=== PATIENT | male | born 1970 | race Caucasian/White ===

== ENCOUNTER 2018-10-21 15:37 | Inpatient (IN) ==
--- NOTE | 2018-10-21 16:09 | PROVIDER DOCUMENTATION ---
HPI-Cardiac General - General Chief Complaint: Palpitations Stated Complaint: HEART RACING,SOB Time Seen by Provider: 10/21/18 15:56 Source: patient, family (pt ) Allergies/Adverse Reactions: Patient Allergies Allergy/AdvReac Type Severity Reaction Status Date / Time Penicillins Allergy Unknown Verified 10/21/18 17:08 - History of Present Illness-Cardiac Nature of Presenting Problem: 48 yom presents with c/o sob and palpitations. Reports that woke up this morning went outside to do yard work and become sob and feelings of going to pass out. States that went back inside to sit down and was feeling better and when he got up to go back outside the sob and palpitations started again. Reports went to work and started having sob and like he was gonna pass out. Takes aspirin daily. No pcp. Denies cp,n,v,f. Also states for the past two weeks he has been fasting for 18 hours out of the day each day then eats a small meal and a large meal in the 6 hours. Quality of Pain: reports: none Severity in ED: moderate Onset/Duration: this morning Timing: still present Context/Activities at Onset: reports: light activity Modifying Factors: worse with: movement Palpitation Quality: fast/pounding heart beat History of arrythmia: reports: none Recent use of:: reports: no stimulants Nitro Today/Relief: reports: no nitro taken today Aspirin Treatment Today: reports: 81 mg x 1, provided at home Prior Chest Pain/Cardiac Workup: reports: no prior chest pain Associated Symptoms: reports: shortness of breath Similar Symptoms Previously?: No Recently Seen Here or By Another Healthcare Provider: No Review of Systems - Adult - REVIEW OF SYSTEMS - ADULT Constitutional: denies: chills, fever, fatique Eyes: reports: no symptoms reported Ears, Nose, Mouth & Throat: reports: no symptoms reported Cardiovascular: reports: irregular heart rate, palpitations. denies: chest pain, heart murmur, orthopnea, poor circulation, syncope, other Respiratory: reports: shortness of breath. denies: chronic cough, dyspnea on exertion, excessive sputum production, hemoptysis, pleurisy, wheezing Gastrointestinal: reports: no symptoms reported Genitourinary: denies: dysuria, discharge, flank pain Musculoskeletal: reports: no symptoms reported Integumentary: reports: no symptoms reported Neurological: denies: dizziness/vertigo, headache/migraines, loss of balance, numbness, paresthesia, seizure, slurred speech, syncope, tremors Psychiatric: reports: no symptoms reported Endocrine: reports: no symptoms reported Hematologic/Lymphatic: reports: no symptoms reported Allergic/Immunologic: reports: no symptoms reported All Other Systems: Reviewed and Negative Past History - Adult - PAST MEDICAL HISTORY-ADULT Review of Records: reports: Nursing Assessment Review, Medications Reviewed Major Childhood Illnesses: reports: denies history Cardiovascular: reports: denies history Respiratory: reports: denies history Gastrointestinal: reports: denies history Obstetrical/Gynecological: reports: denies history Genitourinary: reports: denies history Musculoskeletal: reports: denies history Neurological: reports: denies history Endocrine/Immune: reports: denies history Other Conditions: reports: denies history - IMMUNIZATION STATUS Childhood Immunizations: See Nurse Assessment Flu Vaccine: See Nurse Assessment - FAMILY HISTORY Family History: reviewed, not pertinent - SOCIAL HISTORY Smoking: non-smoker Substance Use: none/never Physical Exam-General - PHYSICAL EXAM-ADULT Initial Vital Signs Reviewed: Yes - CONSTITUTIONAL General Appearance: alert, mild distress. negative: lethargic, slow to respond, obtunded, combative - EYES Eyes: PERRL/EOMI, pink conjunctivae - HEAD, EARS, NOSE, MOUTH & THROAT HENMT: moist mucous membranes - NECK Neck: non-tender, full range of motion, supple, normal inspection. negative: carotid bruit, C-spine tenderness, limited range of motion, lymphadenopathy - RESPIRATORY Respiratory: chest non-tender, lungs clear, normal breath sounds, no pleuratic chest pain, no respiratory distress, no accessory muscle use. negative: respiratory distress, decreased breath sounds, accessory muscle use, crackles, rales, rhonchi, stridor - CARDIOVASCULAR Cardiovascular: tachycardia, irregularly irregular - MUSCULOSKELETAL Back Exam: normal inspection Extremity: normal range of motion, non-tender - SKIN Integumentary: normal color, normal turgor, warm/dry - NEUROLOGIC Neurologic: grossly normal - PSYCHIATRIC Psych/Mental Status: normal mood/affect, normal thought content, normal thought process, oriented x 3 Progress - PLAN OF CARE/RESULTS Progress/Plan/Lab Results: Vital Signs - 8 hr 10/21/18 15:40 10/21/18 15:52 10/21/18 15:53 Temperature 97.9 F Pulse Rate 141 H 138 H 132 H Respiratory Rate 18 30 H 19 Blood Pressure 105/75 134/80 O2 Sat by Pulse Oximetry 96 96 10/21/18 16:00 10/21/18 16:01 10/21/18 16:15 Temperature Pulse Rate 145 H 130 H 144 H Respiratory Rate 8 L 11 L 17 Blood Pressure 97/63 101/87 O2 Sat by Pulse Oximetry 95 95 10/21/18 16:31 10/21/18 16:46 10/21/18 17:01 Temperature Pulse Rate 116 H 132 H 114 H Respiratory Rate 13 12 12 Blood Pressure 93/66 99/80 92/76 O2 Sat by Pulse Oximetry 94 L 96 95 10/21/18 17:10 10/21/18 17:14 10/21/18 17:15 Temperature Pulse Rate 82 129 H 137 H Respiratory Rate 14 15 12 Blood Pressure 85/65 86/67 O2 Sat by Pulse Oximetry 97 97 97 10/21/18 17:20 10/21/18 17:25 10/21/18 17:30 Temperature Pulse Rate 100 H 119 H 116 H Respiratory Rate 11 L 13 12 Blood Pressure 88/68 88/70 O2 Sat by Pulse Oximetry 97 94 L 97 10/21/18 17:36 10/21/18 17:40 10/21/18 17:41 Temperature Pulse Rate 104 H 103 H 134 H Respiratory Rate 13 11 L 12 Blood Pressure 91/66 105/45 O2 Sat by Pulse Oximetry 94 L 97 95 10/21/18 17:45 10/21/18 17:50 10/21/18 17:52 Temperature Pulse Rate 107 H 96 H 87 Respiratory Rate 12 13 10 L Blood Pressure 98/68 92/54 O2 Sat by Pulse Oximetry 98 95 95 10/21/18 17:56 10/21/18 18:00 10/21/18 18:01 Temperature Pulse Rate 131 H 124 H 129 H Respiratory Rate 9 L 16 10 L Blood Pressure 94/57 86/74 O2 Sat by Pulse Oximetry 100 100 10/21/18 18:06 10/21/18 18:10 10/21/18 18:12 Temperature Pulse Rate 120 H 116 H 124 H Respiratory Rate 16 19 12 Blood Pressure 100/68 91/67 O2 Sat by Pulse Oximetry 100 90 L 99 10/21/18 18:16 10/21/18 18:20 10/21/18 18:21 Temperature Pulse Rate 135 H 104 H 116 H Respiratory Rate 9 L 15 10 L Blood Pressure 93/53 90/61 O2 Sat by Pulse Oximetry 99 99 10/21/18 18:26 10/21/18 18:30 10/21/18 18:40 Temperature Pulse Rate 109 H 71 110 H Respiratory Rate 17 11 L 15 Blood Pressure 112/74 99/68 121/62 O2 Sat by Pulse Oximetry 98 99 99 10/21/18 18:45 10/21/18 18:50 10/21/18 18:55 Temperature Pulse Rate 134 H 133 H 134 H Respiratory Rate 17 14 13 Blood Pressure 111/82 112/79 106/73 O2 Sat by Pulse Oximetry 100 99 99 10/21/18 19:00 10/21/18 19:01 10/21/18 19:05 Temperature Pulse Rate 115 H 135 H 110 H Respiratory Rate 11 L 11 L 19 Blood Pressure 110/72 100/84 O2 Sat by Pulse Oximetry 99 98 10/21/18 19:10 10/21/18 19:11 10/21/18 19:16 Temperature Pulse Rate 97 H 76 138 H Respiratory Rate 14 18 20 Blood Pressure 104/92 97/73 O2 Sat by Pulse Oximetry 97 100 10/21/18 19:20 10/21/18 19:21 10/21/18 19:26 Temperature Pulse Rate 96 H 83 126 H Respiratory Rate 14 10 L 14 Blood Pressure 136/101 121/91 O2 Sat by Pulse Oximetry 99 97 99 10/21/18 19:30 10/21/18 19:31 10/21/18 19:37 Temperature Pulse Rate 112 H 80 86 Respiratory Rate 16 15 13 Blood Pressure 132/85 120/82 O2 Sat by Pulse Oximetry 96 95 97 10/21/18 19:40 10/21/18 19:41 10/21/18 19:46 Temperature Pulse Rate 86 140 H 83 Respiratory Rate 14 14 15 Blood Pressure 150/102 121/80 O2 Sat by Pulse Oximetry 97 97 98 10/21/18 19:50 10/21/18 19:52 10/21/18 19:56 Temperature Pulse Rate 91 H 140 H 115 H Respiratory Rate 11 L 18 17 Blood Pressure 130/72 110/89 O2 Sat by Pulse Oximetry 97 98 10/21/18 20:00 10/21/18 20:01 10/21/18 20:03 Temperature Pulse Rate 100 H 123 H 107 H Respiratory Rate 15 15 21 Blood Pressure 85/61 115/90 O2 Sat by Pulse Oximetry 96 97 98 10/21/18 20:06 10/21/18 21:19 Temperature Pulse Rate 136 H 102 H Respiratory Rate 19 Blood Pressure 127/82 O2 Sat by Pulse Oximetry 98 Laboratory Results - last 24 hr 10/21/18 10/21/18 10/21/18 15:53 15:53 15:53 WBC 6.92 RBC 5.64 Hgb 15.2 Hct 45.8 MCV 81.2 MCH 27.0 MCHC 33.2 RDW Std Deviation 13.5 Plt Count 201 MPV 12.7 H Immature Gran % (Auto) 0.0 Neut % (Auto) 39.6 L Lymph % (Auto) 48.1 [place] % (Auto) 7.8 Eos % (Auto) 3.6 Baso % (Auto) 0.9 H Immature Gran # (Auto) 0.00 Neut # (Auto) 2.74 Lymph # (Auto) 3.33 [place] # (Auto) 0.54 Eos # (Auto) 0.25 Baso # (Auto) 0.06 PT INR PTT (Actin FS) D-Dimer, Quantitative Sodium 141 Potassium 4.1 Chloride 104 Carbon Dioxide 25 Anion Gap 12 BUN 15 Creatinine 0.9 Estimated GFR/1.73 m2 > 60 BUN/Creatinine Ratio 17 Glucose 89 Calculated Osmolality 282 Calcium 9.3 Total Bilirubin 0.53 AST 25 ALT 19 Alkaline Phosphatase 51 Creatine Kinase 290 H Creatine Kinase Index 1.9 CK-MB (CK-2) 5.43 H Troponin T [id number] Pept 564 H Total Protein 6.9 Albumin 4.1 Globulin 2.8 Albumin/Globulin Ratio 1.5 Urine Source Urine Color Urine Turbidity Urine pH Ur Specific [place] Urine Protein Ur Glucose (Stick) Ur Ketones (Stick) Urine Blood Urine Nitrite Urine Bilirubin Urobilinogen Dipstick Urine Leukocytes Urine WBC (Auto) Urine RBC (Auto) U Epithel Cells (Auto) Urine Bacteria (Auto) 10/21/18 10/21/18 10/21/18 15:53 15:53 15:53 WBC RBC Hgb Hct MCV MCH MCHC RDW Std Deviation Plt Count MPV Immature Gran % (Auto) Neut % (Auto) Lymph % (Auto) [place] % (Auto) Eos % (Auto) Baso % (Auto) Immature Gran # (Auto) Neut # (Auto) Lymph # (Auto) [place] # (Auto) Eos # (Auto) Baso # (Auto) PT 13.9 INR 0.99 PTT (Actin FS) 32.9 D-Dimer, Quantitative 0.54 H Sodium Potassium Chloride Carbon Dioxide Anion Gap BUN Creatinine Estimated GFR/1.73 m2 BUN/Creatinine Ratio Glucose Calculated Osmolality Calcium Total Bilirubin AST ALT Alkaline Phosphatase Creatine Kinase Creatine Kinase Index CK-MB (CK-2) Troponin T < 0.010 [id number] Pept Total Protein Albumin Globulin Albumin/Globulin Ratio Urine Source Urine Color Urine Turbidity Urine pH Ur Specific [place] Urine Protein Ur Glucose (Stick) Ur Ketones (Stick) Urine Blood Urine Nitrite Urine Bilirubin Urobilinogen Dipstick Urine Leukocytes Urine WBC (Auto) Urine RBC (Auto) U Epithel Cells (Auto) Urine Bacteria (Auto) 10/21/18 19:14 WBC RBC Hgb Hct MCV MCH MCHC RDW Std Deviation Plt Count MPV Immature Gran % (Auto) Neut % (Auto) Lymph % (Auto) [place] % (Auto) Eos % (Auto) Baso % (Auto) Immature Gran # (Auto) Neut # (Auto) Lymph # (Auto) [place] # (Auto) Eos # (Auto) Baso # (Auto) PT INR PTT (Actin FS) D-Dimer, Quantitative Sodium Potassium Chloride Carbon Dioxide Anion Gap BUN Creatinine Estimated GFR/1.73 m2 BUN/Creatinine Ratio Glucose Calculated Osmolality Calcium Total Bilirubin AST ALT Alkaline Phosphatase Creatine Kinase Creatine Kinase Index CK-MB (CK-2) Troponin T [id number]-[id number] Pept Total Protein Albumin Globulin Albumin/Globulin Ratio Urine Source CLEAN CATCH Urine Color YELLOW Urine Turbidity CLEAR Urine pH 5.5 Ur Specific [place] 1.008 Urine Protein NEGATIVE Ur Glucose (Stick) NEGATIVE Ur Ketones (Stick) NEGATIVE Urine Blood NEGATIVE Urine Nitrite NEGATIVE Urine Bilirubin NEGATIVE Urobilinogen Dipstick NORMAL Urine Leukocytes NEGATIVE Urine WBC (Auto) <10 Urine RBC (Auto) <10 U Epithel Cells (Auto) <10 Urine Bacteria (Auto) NEGATIVE Orders Category Date Time Status Admit - [facility] Routine AdmDCTranf 10/21/18 21:47 Active Activity - Up with Assistance ORDERED Care 10/21/18 21:47 Active Intake and Output-Strict ORDERED Care 10/21/18 21:47 Active Misc. NRSG Communication Order DIRECTED Care 10/21/18 20:35 Completed Misc. NRSG Communication Order DIRECTED Care 10/21/18 20:36 Completed Nursing- MD Consult Request ROUTINE Care 10/21/18 21:47 Active Nursing- MD Consult Request ROUTINE Care 10/21/18 21:47 Active Saline Loc NOW Care 10/21/18 15:56 Completed Vital Signs Order Q 8-HR ASSESS Care 10/21/18 21:47 Active Z-Document. for Tele Applied ORDERED Care 10/21/18 21:47 Active Physician/Provider Consults Routine Cons 10/21/18 21:47 Ordered Physician/Provider Consults Routine Cons 10/21/18 21:47 Ordered Heart Healthy Diet Diet 10/21/18 21:47 Active CHEST-PORTABLE [RAD] Stat Exams 10/21/18 15:57 Completed BASIC METABOLIC PANEL [CHEM] Routine Lab 10/22/18 06:00 Uncollected CBC WITH DIFF [HEME] Routine Lab 10/22/18 06:00 Uncollected CBC WITH ELECTRONIC DIFF [HEME] Stat Lab 10/21/18 15:53 Completed CK PROFILE [SP CHEM] Stat Lab 10/21/18 15:53 Completed COMPREHENSIVE METABOLIC PANEL [CHEM] Stat Lab 10/21/18 15:53 Completed D-DIMER [COAG] Stat Lab 10/21/18 15:53 Completed MAGNESIUM [CHEM] Routine Lab 10/22/18 06:00 Uncollected PRO B-NATRIURETIC PEPTIDE Stat Lab 10/21/18 15:53 Completed PT [PROTIME WITH INR] [COAG] Stat Lab 10/21/18 15:53 Completed PTT [COAG] Stat Lab 10/21/18 15:53 Completed TROPONIN T Q6H Lab 10/21/18 21:47 Ordered TROPONIN T Q6H Lab 10/22/18 03:47 Ordered TROPONIN T Stat Lab 10/21/18 15:53 Completed TSH Routine Lab 10/22/18 06:00 Uncollected URINALYSIS W/POSS RFLX CULT [URINALYSIS] Stat Lab 10/21/18 19:14 Completed 0.9% Sodium Chloride Inj [Ns] 1,000 ml Med 10/21/18 21:47 Active IV 150 mls/hr 0.9% Sodium Chloride Inj [Ns] 1,000 ml Med 10/21/18 16:50 Discontinued IV 999 mls/hr 0.9% Sodium Chloride Inj [Ns] 1,000 ml Med 10/21/18 17:40 Discontinued IV 999 mls/hr Acetaminophen [Tylenol] Med 10/21/18 21:47 Ordered 650 mg PO Q6H PRN PRN Apixaban [Eliquis] Med 10/21/18 21:47 Discontinued 5 mg PO NOW ONE Dextrose 5%-0.45% NaCl Inj [D5 /2 Ns] 250 ml Med 10/21/18 18:00 Discontinued Norepinephrine [Levophed] 8 mg IV As Directed mls/hr Digoxin [Lanoxin] Med 10/21/18 20:30 Discontinued 250 microgm IV NOW ONE Digoxin [Lanoxin] Med 10/21/18 21:47 Ordered 250 microgm IV Q4H Diltiazem [Cardizem] Med 10/21/18 17:07 Discontinued 10 mg IV NOW ONE Diltiazem [Cardizem] Med 10/21/18 19:30 Discontinued 25 mg .ROUTE .STK-MED ONE Diltiazem [Cardizem] Med 10/22/18 02:00 Ordered 30 mg PO Q6HR Metoprolol [Lopressor] Med 10/21/18 19:35 Discontinued 5 mg IV NOW ONE Ondansetron [Zofran] Med 10/21/18 21:47 Ordered 4 mg IV Q4H PRN PRN Telemetry [OM.EQ] Routine Oth 10/21/18 21:47 Active EKG [EKG] Routine Ther 10/22/18 07:00 Ordered EKG [EKG] Stat Ther 10/21/18 15:56 Draft Echo Spec/Color Dop W/O Contra Routine Ther 10/22/18 11:00 Ordered Transfer/Admit Order [TRANSFER] Routine Transfer 10/21/18 20:23 Completed Discussed results and plan of care with patient. Patient agrees with plan and verbalizes understanding. Result Diagrams: 10/21/18 15:53 10/21/18 15:53 - EKG 1 Time of EKG reading by physician:: 15:43 EKG Read and Signed by:: Todd Dye EKG Interpretation (*Must complete 3 of following elements*): Abnormal (inferior infarct age undetermined) Rate: 142 Rhythm: atrial flutter with 2:1 conduction aV Ralph: normal QRS: LVH (with repolarization) OK Interval: normal - XRAY 1 XRAY: Bilateral XRAY Study: Chest Impression: Normal ( EXAM: CHEST-PORTABLE 10/21/2018 HISTORY: CP TECHNIQUE: AP portable upright at 1607 COMMENT: There are no previous studies available for comparison. There is no evidence of acute cardiac or pulmonary disease. IMPRESSION: No evidence of acute disease. Electronically signed by Raj Farrell 10/21/2018 4:11 PM 10/21/18 1611 Interpreting Physician: Raj Farrell MD Dictated Date/Time: 10/21/18 1610 cc: Kyrie Lange; None,PCP) - CONSULTS/PCP/HOSPITALIST Notification #1 *Consult/PCP/Hospitalist*: Dr. Hogue Time Discussed: 19:34 Reason/Comments: Consult Consult Disposition: other (Do not give cardizem and stop the levophed. Give metoprolol.) #2 Consult: Dr. York Time Discussed: 19:38 Reason/Comments: Admission Consult Disposition: Will see in ED, Admit Departure - Departure Date of Disposition Decision: 10/21/18 Time of Disposition Decision: 19:36 DIAGNOSIS: Atrial flutter Qualifiers: Atrial flutter type: unspecified Qualified Code(s): I48.92 - Unspecified atrial flutter Disposition: ADMITTED INPATIENT 09 Certified Medical Emergency: Emergent Condition: Stable Referrals and Follow-Ups: None,PCP [Primary Care Provider] - - Critical Care Note This patient required my direct & personal management of CC.: No Attestation - Physician/ MICHELLE Attestation Patient care was provided by Advanced Practice Provider:: Yes Advanced Practice Provider:: Kyrie Lange Advanced Practice Provider documentation review:: The Mid-level provider documentation, treatment plan and medical decision making was reviewed by the physician who agrees with all treatment and medical decision making by the [facility]. The physician spent face to face time with patient:: No Advanced Practice Provider documentation review:: Supervising physician onsite and consulted in the evaluation and care of this patient. The physician did not have a face to face encounter with the patient.
--- NOTE | 2018-10-21 16:13 | Diag Imaging Result Doc PS360 ---
EXAM: CHEST-PORTABLE 10/21/2018 HISTORY: CP TECHNIQUE: AP portable upright at 1607 COMMENT: There are no previous studies available for comparison. There is no evidence of acute cardiac or pulmonary disease. IMPRESSION: No evidence of acute disease. Electronically signed by Raj Farrell 10/21/2018 4:11 PM
[2018-10-21] MEDS ORDERED: NS 1,000 ML IV ONE ×3 (16:50→21:47)
[2018-10-21] MEDS ORDERED: CARDIZEM IV ONE (17:07)
--- NOTE | 2018-10-21 17:07 | EKG Report ---
Test Performed on : 10/21/2018 3:43:46 PM Test Reason : CP Blood Pressure : / mmHG Vent. Rate : 142 BPM Atrial Rate : 284 BPM P-R Int : 000 ms QRS Dur : 088 ms QT Int : 298 ms P-R-T Axes : 241 -18 -32 degrees QTc Int : 458 ms Atrial flutter. with 2:1 AV conduction. Left ventricular hypertrophy with repolarization abnormality Inferior infarct , age undetermined Abnormal ECG No previous ECGs available Unconfirmed Result
[2018-10-21] MEDS ORDERED: LEVOPHED 8 MG in D5 1/2 NS 250 ML IV SCH (18:00)
[2018-10-21 18:06] LABS: BASO# 0.06 X1000 (0.0-0.2); BASO% 0.9 % (0.0-0.8); EOS# 0.25 X1000 (0.0-0.7); EOS% 3.6 % (0.0-10.0); HEMATOCRIT 45.8 % (42.0-52.0); HEMOGLOBIN 15.2 g/dL (14.0-18.0); LYMPH# 3.33 X1000 (1.2-3.4); LYMPH% 48.1 % (20.5-51.1); MCHC 33.2 g/dL (33-37); MCV 81.2 FL (81-99); MONO# 0.54 X1000 (0.11-0.59); MONO% 7.8 % (1.7-9.3); MPV 12.7 FL (7.4-10.4); NEUT# 2.74 X1000 (1.4-6.5); NEUT% 39.6 % (42.2-75.2); PLT 201 X1000 (130-400); RBC 5.64 XMIL (4.7-6.1); RDW 13.5 % (11.5-14.5); WBC 6.92 X1000 (4.8-10.8)
[2018-10-21 18:28] LABS: AGAP 12; ALB/GLOB RATIO 1.5; ALBUMIN 4.1 g/dL (3.5-5.0); ALKALINE PHOSPHATASE 51 U/L (32-122); BUN 15 mg/dL (8-22); CALCIUM 9.3 mg/dL (8.8-10.2); CHLORIDE 104 mmol/L (98-107); COSMO 282; CREATININE 0.9 mg/dL (0.7-1.2); ESTIMATED GFR > 60; GLUCOSE 89 mg/dL (70-104); GOT 25 U/L (10-34); GPT 19 U/L (10-44); POTASSIUM 4.1 mmol/L (3.5-5.1); SODIUM 141 mmol/L (136-145); TCO2 25 mmol/L (25-35); TOTAL BILIRUBIN 0.53 mg/dL (0.20-1.00); TOTAL PROTEIN 6.9 g/dL (6.3-8.3)
[2018-10-21 18:32] LABS: CK PROFILE 290 U/L (24-204)
[2018-10-21 18:56] LABS: CK INDEX 1.9 (0.0-2.5); CK-MB 5.43 ng/mL (0.0-5.0)
[2018-10-21] MEDS ORDERED: CARDIZEM ONE (19:30)
[2018-10-21] MEDS ORDERED: LOPRESSOR IV ONE (19:35)
[2018-10-21 19:39] LABS: URINE SOURCE CLEAN CATCH
[2018-10-21 19:45] LABS: BILIRUBIN URINE NEGATIVE (NEGATIVE); BLOOD URINE NEGATIVE (NEGATIVE); COLOR YELLOW; GLUCOSE URINE NEGATIVE (NEGATIVE); KETONE URINE NEGATIVE (NEGATIVE); LEUKOCYTES URINE NEGATIVE (NEGATIVE); NITRITE URINE NEGATIVE (NEGATIVE); PH URINE 5.5; PROTEIN URINE NEGATIVE (NEGATIVE); SP GRAVITY URINE 1.008; TURBIDITY URINE CLEAR (CLEAR); UR EPITHELIAL CELLS <10 /HPF (<10); URINE BACTERIA NEGATIVE /HPF; URINE RBC <10 /HPF (<10); URINE WBC <10 /HPF (<10); UROBILINOGEN URINE NORMAL (NORMAL)
[2018-10-21] MEDS ORDERED: LANOXIN IV ONE (20:30)
[2018-10-21 21:03] LABS: INR 0.99; PROTIME 13.9 Seconds (11.0-16.0)
[2018-10-21 21:07] LABS: PTT 32.9 Seconds (22.3-41.8)
--- NOTE | 2018-10-21 21:23 | HISTORY AND PHYSICAL ---
PRIMARY CARE PHYSICIAN: None. REASON FOR ADMISSION: Palpitations, lightheadedness today. HISTORY OF PRESENT ILLNESS: Mr. Valdez Abarca is a 48-year-old male with no significant past medical history. He states that he woke up this morning and felt his heart was fluttering, and he developed simultaneous lightheadedness and felt he was going to pass out. That episode then resolved spontaneously, and he went to work. He felt it again, and he went to check in with his work's medical team. They examined him and told him to go to the ER. He said he has been also having chest fullness/heaviness when the palpitations come on, and he feels that he is going to black out sometimes. He denies any leg swelling. No extremity redness or pain. No calf tenderness. No orthopnea or PND. No cough, fever or chills. No diaphoresis. No nausea or vomiting. No GI or complaints. No focal neurological complaints. No rash or arthralgia. No polyuria or polydipsia. No heat intolerance. REVIEW OF SYSTEMS: A 12-system review was done and positive for findings as per the HPI. His does complain that he snores heavily, and he has noticed that he stops breathing intermittently. ALLERGIES: Penicillin. HOME MEDICATIONS: None. PAST SURGICAL HISTORY: He has had left knee surgery and right shoulder surgery. FAMILY HISTORY: Dad had heart disease. Nobody with diabetes or blood clots in the family. SOCIAL HISTORY: He drinks a few glasses of liquor every other weekend. No smoking or drug use. . Lives with his . LAB WORK: White count 6000, hemoglobin and hematocrit 15 and 45, platelets 201 with normal differential. Chemistry: BUN 15, creatinine 0.9. CK 290, index 1.9. Troponin negative. ProBNP 564. PT/PTT and D-dimer pending. Urinalysis is clean. Chest x-ray is normal. EKG shows atrial flutter, with 2:1 conduction, possible LVH. PHYSICAL EXAMINATION: GENERAL: Morbidly obese middle-aged man who is not in acute distress. A O x3. Normal mood and affect. VITAL SIGNS: His heart rates range anywhere between 115 to the 130s, even after receiving 5 mg of IV metoprolol. His blood pressure is 110/89, temperature 97.9, respirations 17, 98% on room air. HEENT: Head is normocephalic, atraumatic. Eyes: PERRL, EOMI. He is anicteric, not pale. ENT: Oropharynx exam is grossly normal. NECK: Supple. No JVD, carotid bruits, or thyromegaly. CHEST: Clear to auscultation. Good air entry in both lung simmons. CARDIOVASCULAR: First and second heart sounds heard. No gallops, murmurs or rubs. Rhythm is irregular. ABDOMEN: Protuberant and soft. No tenderness or megaly. Bowel sounds are hypoactive. RECTAL EXAM: Deferred at this time. EXTREMITIES: The patient has a few varicosities on his lower extremities, which he says he has had for decades; however, no calf tenderness or redness. No edema. No clubbing or peripheral cyanosis. Pulses distally are symmetrical. Good volume, irregular. NEUROLOGIC: No gross focal deficits. SKIN: Intact with no breakdown, lesions or erythema. MUSCULOSKELETAL: Grossly normal. ASSESSMENT: 1. Atrial fibrillation/flutter with rapid ventricular rate. 2. Morbid obesity. 3. Probable sleep apnea. PLAN: At this time the patient will be started on digoxin IV x3 doses to get his rate down. His blood pressure is marginal, anywhere between 80 and 90. He was given IV push metoprolol, and his pressure dropped into the 80s, and he was started on low-dose pressors. For now, we are going to try and wean him off the pressors, i.e., Levophed, and maintain his pressure with crystalloids. If pressors are needed, we will switch him to Ba if at all. Will continue with Cardizem p.o. for rate control. If after all these measures his heart rate is still elevated, we may consider cardioversion. I have given him a 1-time dose of Eliquis in anticipation of possible cardioversion if medication therapy fails. Dr. Hogue was notified, and he will see the patient later. Echocardiogram was ordered. TSH was ordered. A D-dimer was also done to also rule out the remote possibility of a thromboembolic mechanism, especially since he is morbidly obese and he has varicosities. cc: Christian York MD [facility]
[2018-10-21] MEDS ORDERED: LANOXIN IV SCH (21:47)
[2018-10-21] MEDS ORDERED: ZOFRAN IV PRN (21:47)
[2018-10-21] MEDS ORDERED: TYLENOL PO PRN (21:47)
[2018-10-21] MEDS ORDERED: ELIQUIS PO ONE (21:47)
[2018-10-22] MEDS: LANOXIN IV SCH ×2 (01:26→04:58)
[2018-10-22] MEDS: CARDIZEM PO SCH ×3 (01:30→05:31)
[2018-10-22] MEDS ORDERED: CARDIZEM PO SCH (02:00)
[2018-10-22 05:58] LABS: BASO# 0.03 X1000 (0.0-0.2); BASO% 0.5 % (0.0-0.8); EOS# 0.25 X1000 (0.0-0.7); EOS% 4.3 % (0.0-10.0); HEMATOCRIT 42.2 % (42.0-52.0); HEMOGLOBIN 13.7 g/dL (14.0-18.0); LYMPH# 2.69 X1000 (1.2-3.4); LYMPH% 46.3 % (20.5-51.1); MCH 27.1 PG (27-31); MCHC 32.5 g/dL (33-37); MCV 83.4 FL (81-99); MONO# 0.44 X1000 (0.11-0.59); MONO% 7.6 % (1.7-9.3); MPV 12.6 FL (7.4-10.4); NEUT% 41.3 % (42.2-75.2); PLT 166 X1000 (130-400); RBC 5.06 XMIL (4.7-6.1); RDW 13.8 % (11.5-14.5); WBC 5.81 X1000 (4.8-10.8)
[2018-10-22 06:18] LABS: AGAP 10; BUN 16 mg/dL (8-22); CALCIUM 8.9 mg/dL (8.8-10.2); CHLORIDE 112 mmol/L (98-107); COSMO 294; CREATININE 0.9 mg/dL (0.7-1.2); ESTIMATED GFR > 60; GLUCOSE 107 mg/dL (70-104); MAGNESIUM 1.8 mg/dL (1.5-2.7); POTASSIUM 4.4 mmol/L (3.5-5.1); SODIUM 147 mmol/L (136-145); TCO2 25 mmol/L (25-35)
--- NOTE | 2018-10-22 07:30 | EKG Report ---
Test Performed on : 10/22/2018 07:06:31 AM Test Reason : A flutter Blood Pressure : / mmHG Vent. Rate : 074 BPM Atrial Rate : 296 BPM P-R Int : 000 ms QRS Dur : 102 ms QT Int : 398 ms P-R-T Axes : 245 -05 041 degrees QTc Int : 441 ms Atrial flutter. with variable AV block. Nonspecific ST abnormality Abnormal ECG When compared with ECG of 21-OCT-2018 15:43, (Unconfirmed) Vent. rate has decreased BY 68 BPM Criteria for Inferior infarct are no longer present ST no longer depressed in Inferior leads ST no longer depressed in Anterior leads Nonspecific T wave abnormality has replaced inverted T waves in Inferior leads Confirmed by Carol SAAB, Lester ([id number]) on 10/22/2018 8:54:44 AM
[2018-10-22 08:16] VITALS: BP 108/77
--- NOTE | 2018-10-22 09:07 | EKG Report ---
Test Performed on : 10/22/2018 09:01:56 AM Test Reason : converted to sinus bonny Blood Pressure : / mmHG Vent. Rate : 051 BPM Atrial Rate : 051 BPM P-R Int : 156 ms QRS Dur : 100 ms QT Int : 410 ms P-R-T Axes : 024 001 029 degrees QTc Int : 377 ms Sinus bradycardia. with premature atrial complexes. Otherwise normal ECG When compared with ECG of 22-OCT-2018 07:06, Sinus rhythm. has replaced Atrial flutter. Non-specific change in ST segment in Inferior leads QT has shortened Confirmed by Carol SAAB, Lester ([id number]) on 10/23/2018 12:53:28 PM
--- NOTE | 2018-10-22 13:50 | ECHO REPORT ---
ORDER DATE: 10/22/2018 INDICATION: Atrial fibrillation. Morbid obesity. FINDINGS: 1. The right atrium appears normal, mildly enlarged at 4.4 cm. 2. Mild tricuspid regurgitation. Insufficient data to estimate RV systolic pressure. 3. Normal RV size and systolic function. 4. No significant pulmonic insufficiency. 5. Likely normal left atrial size. Very difficult images of the left atrium. 6. No mitral valve prolapse. Mild mitral regurgitation. 7. Normal LV size, end-diastolic dimension of 5.1. Probable mild left ventricular hypertrophy with a septal wall thickness of 1.2 cm. Difficult resolution of the posterior wall. Normal LV systolic function. Estimated ejection fraction of 55% to 60% percent with normal wall motion. 8. Aortic valve opens well. It is trileaflet. There is mild insufficiency with no stenosis. 9. Aorta appears normal in visualized segments. 10. No clear evidence of pericardial effusion on this study. cc: MD Christian Beatty MD
[2018-10-22] MEDS ORDERED: ALDACTONE PO SCH (14:15)
[2018-10-22] MEDS ORDERED: CARDIZEM CD PO SCH (14:15)
--- NOTE | 2018-10-22 14:47 | PROGRESS NOTE ---
DATE: 10/22/2018 OVERNIGHT EVENTS: Mr. Abarca was admitted for atrial flutter with a 2:1 block. Was given intravenous diltiazem, intravenous digoxin, following which he had converted back to normal sinus rhythm. He is currently on p.o. diltiazem. SUBJECTIVE: Denies chest pain, shortness of breath, palpitations. We discussed about atrial fibrillation, pathophysiology and stroke risk. I answered all of the questions. Family is at bedside. VITALS: Currently, temperature 97.4 degrees, pulse 78, respiratory rate 20, blood pressure 108/77, saturating 96% on room air. PHYSICAL EXAMINATION: Air entry bilaterally equal. No wheeze, rhonchi, crackles. S1, S2 normal. No murmur, rub, or gallop. Normal sinus rhythm on bedside monitor. Abdomen is soft, nontender. Mild bilateral lower extremity edema. LABS: Essentially unremarkable except hypernatremia and hyperchloremia related to intravenous fluids. ASSESSMENT AND PLAN: 1. Atrial fibrillation with rapid ventricular rate. I will continue patient on oral diltiazem. He should get outpatient sleep study for obstructive sleep apnea. 2. Bilateral lower extremity edema and suspected diastolic dysfunction. He has also been started on spironolactone by cardiology. I will appreciate their recommendation about starting aspirin as his CHADS2-VASc score is 0. 3. Disposition. After cardiology has seen the patient, I will plan discharging the patient later today or tomorrow. Plan of care discussed with him. All of his questions have been answered. cc: Stalin Alonzo MD
[2018-10-22 15:53] LABS: CHOLESTEROL 132 mg/dL (0-200); HDL 36 mg/dL (35-55); LDL 74 mg/dL; TRIGLYCERIDES 111 mg/dL (39-160); URIC ACID 6.4 mg/dL (3.4-7.0); VLDL 22 mg/dL
--- NOTE | 2018-10-22 17:27 | CARDIOLOGY CONSULTATION ---
DATE: 10/22/2018 REQUESTING: Consultation requested by hospitalist service. REASON: Irregular heartbeat, atrial flutter. Chief complaint: "heart racing". HISTORY: Mr. Abarca is a pleasant 48-year-old gentleman, a male, who presented to the hospital at about 3:30 p.m. yesterday with complaint that he developed sudden onset of sensation of heart racing or palpitations.Duration about 30 minutes to 1 hour. Upon presentation, they did a 12-lead ECG that shows atrial flutter with a heart rate of 142 beats per minute. The patient was given Cardizem low-dose 10 mg every 6 hours and put on Eliquis 5 mg 1 time. He converted spontaneously to sinus rhythm this morning. He is really feeling much better. I am seeing him at about 2:30 p.m. on October 22. He has not noticed any chest pain, shortness of breath, dizziness, or edema. PAST HISTORY: Positive for just being obese. He was diagnosed with sleep apnea syndrome some time ago. He never followed through with the recommendations. SURGICAL HISTORY: Positive for left knee arthroscopic surgery and right shoulder arthroscopic surgery. SOCIAL HISTORY: He has been to his for 20+ years. They have 2 children. He works for [employer], and he works 2nd shift from 2:30 p.m. to 2:30 a.m., 6 days a week. He sleeps really very little. He drinks occasionally. He does not smoke. FAMILY HISTORY: Father had sudden at the age of 64. Mother had cardiomyopathy secondary to chemotherapy for breast cancer. The patient used to be a patient of Dr. Gopi Montalvo. He was not taking any home medications. REVIEW OF SYSTEMS: Really noncontributory. He basically does everything he wants physically. He has been dealing with obesity for quite some time. His Body Mass Index is 43. His weight is 335 pounds. He was 165 pounds when he his more than 25 years ago. Otherwise, no positives in cardiopulmonary, gastrointestinal, genitourinary, musculoskeletal, neurological, psychiatric, hematological, immunological systems, etc. PHYSICAL EXAMINATION: Vital signs: Blood pressure 108/77, temperature 97.4 degrees, pulse right now is 78, respirations 16. He is awake alert, oriented, sitting upright, in no distress. HEENT: Unremarkable. Chest: Clear to auscultation and percussion. Heart sounds are regular and rhythmic with no gallop or murmur. His abdomen is obese, nontender. No masses. No hepatomegaly. Extremities showed good pulses, no peripheral edema. Neurological: Nonfocal. Moves 4 extremities. DIAGNOSTIC STUDIES: Blood work showed sodium 147, potassium 4.4, BUN 16, creatinine 0.9, chloride 112, carbon dioxide 25. Troponins have been checked a total of 3 times, and they are negative. Pro BNP elevated at 564 pg/ml; upper normal is 138 pg/ml. His albumin level is normal. Urinalysis shows a specific gravity of 1.008 yesterday. That is somewhat low. His chest x-ray done yesterday shows no evidence of acute disease. Echocardiogram done today shows normal left ventricular ejection fraction in the range of 55% to 60%. Normal wall motion. No significant valvular abnormality. Mild tricuspid and mitral regurgitation. IMPRESSION: 1. Patient who presented with paroxysmal atrial flutter. He has responded to low-dose Cardizem. 2. Patient who has probably obstructive sleep apnea syndrome. 3. Patient is morbidly obese. Body Mass Index 43. 4. History of family history of coronary heart disease/sudden cardiac . 5. Question of diastolic heart failure, probably due to arrhythmia ,based on elevated pro BNP level. 6. Mild hypernatremia. Question of nephrogenic Diabetes insipidus. RECOMMENDATION: At this time, I would suggest to place the patient on Cardizem CD 180 mg plus low- dose spironolactone. We will arrange for a sleep study. I will arrange for an office visit with me, and at that time, we will probably consider doing a lipid panel with a coronary calcium score, and we will suggest further evaluation, perhaps including a myocardial perfusion stress test. He is encouraged to increase water intake. At this time, patient seems to be hemodynamically stable. The patient may be discharged home. We will take care of the details of his follow-up. cc: Derick Olivares MD [facility]
--- NOTE | 2018-10-22 21:47 | CONSULTATION ---
DATE OF CONSULTATION: 10/22/2018 REQUESTING PROVIDER: Dr. Christian York. REASON FOR CONSULTATION: Sleep apnea evaluation. HISTORY OF PRESENT ILLNESS: This is a 48-year-old male with a medical history of obstructive sleep apnea and morbid obesity. He presented to the ER yesterday afternoon from work place with palpitation and lightheadedness. Initial workup in the ER revealed paroxysmal atrial flutter. He has been admitted to the [facility] for further evaluation and management. At the time of my examination, patient is sitting up comfortably in the bed with his mother at the bedside. He reported he was once diagnosed with obstructive sleep apnea 20 years ago, but he has never been on CPAP therapy as he was not ready at that time. He reports snoring and he usually sleeps on his back. He has no interrupted sleep, morning headache, significant daytime sleepiness, dizziness, pedal edema or chest pain, and this is his first time to have palpitations. PAST MEDICAL AND SURGICAL HISTORY: 1. Obstructive sleep apnea, diagnosed 20 years ago, but never on CPAP therapy. 2. Morbid obesity, current BMI 43.0. 3. Arthroscopic surgery on the left knee and right shoulder. SOCIAL HISTORY: The patient lives at home with his family. He drinks occasionally. He has no history of tobacco or illicit drug use. FAMILY HISTORY: Father had sudden from heart attack. Mother had breast cancer and cardiomyopathy. ALLERGIES: Penicillins. REVIEW OF SYSTEMS: A 10 point review of systems was conducted and the pertinent is listed within the HPI. Otherwise, noncontributory. PHYSICAL EXAMINATION: Vital Signs: Temperature 97.4, blood pressure 108/77, pulse 78, respiratory rate 20, oxygen saturation 96% on room air. General: Morbidly obese, sitting in the bed comfortably with family at the bedside. HEENT: Atraumatic, trachea midline. Mucosa pink and moist. Respiratory: Even and unlabored. Symmetrical excursion. Clear to auscultation. Cardiovascular: Regular rate and rhythm. Gastrointestinal: Bowel sounds normoactive in all 4 quadrants. Soft, nontender, and distended. Extremities: Bilateral lower extremity has some varicosities and mild discoloration, but no pitting edema, cyanosis, or clubbing noted. Neurologic: Alert and oriented x 3. Speech fluent. Follows commands. LAB DATA: White blood cell 5.81, hemoglobin 14.7, hematocrit 42.2, platelet 166,000. Sodium 147, potassium 4.4, chloride 112, carbon dioxide 25, BUN 16, creatinine 0.9, glucose 107. ASSESSMENT AND PLAN: This is a 48-year-old male with medical history of obstructive sleep apnea and morbid obesity. He has been admitted to the [facility] for atrial flutter. 1. Paroxysmal atrial flutter. Dr. Hogue is on board. 2. Previous obstructive sleep apnea. A sleep study is highly recommended at this time. Will follow up outpatient. 3. Morbid obesity. The patient reports that he has been working on it. 4. Continue GI and DVT prophylaxis. 5. Further recommendations pending hospital course. Thank you for the courtesy of this consult. Dictated by LAVERNE Melgoza for Jarocho Chacon MD cc: LAVERNE Melgoza MD [facility]
[2018-10-23] MEDS ORDERED: ASPIRIN PO SCH (09:00)
--- NOTE | 2018-10-23 10:59 | DISCHARGE SUMMARY ---
ADMISSION DATE: 10/21/2018 DISCHARGE DATE: 10/22/2018 DISCHARGE DIAGNOSES: 1. Atrial flutter with 2:1 block. 2. Atrial fibrillation with rapid ventricular rate. CONSULTATIONS DURING HOSPITALIZATION: Cardiology Dr. Olivares. DISCHARGE MEDICATIONS: 1. Diltiazem 180 mg p.o. daily. 2. Spironolactone 12.5 mg p.o. daily. VITALS: At the time of discharge, temperature 97.4 degrees, pulse 78, respiratory rate 20, blood pressure 108/77 and saturating 96% on room air. DISCHARGE PHYSICAL EXAMINATION: At the time of discharge, air entry bilaterally equal. No wheeze, rhonchi or crackles. S1, S2 normal. No murmur or gallop. Abdomen is soft and nontender. Mild lower extremity edema. He is alert and oriented x3. LABORATORY: Significant labs during hospitalization, no leukocytosis except hemoglobin of 13.7, platelet of 166,000, and INR of 0.9. D-dimer of mild elevation 0.5. Sodium of 147, chloride of 112. He should get outpatient BMP. His troponin's have been negative. IMAGING DURING HOSPITALIZATION: Chest x-ray did not have any evidence of acute disease. EKG on admission had atrial flutter with 2:1 block, which has later changed to normal sinus rhythm with sinus bradycardia. Echocardiogram suggests ejection fraction of 55 to 60 percent with normal wall motion. HOSPITAL COURSE SUMMARY: Mr. Abarca is 48 year old male without any significant past medical history, who came in with complaints of palpitations and lightheadedness of a few hours duration. Apparently, he has been working really hard, and has had work related stress and some sleep deprivation. In the emergency room, he was found to have atrial flutter with 2:1 block. He was given intravenous digoxin and intravenous diltiazem, following which he was converted to normal sinus rhythm and was started on p.o. diltiazem. Echocardiogram did not have any structural heart disease. His CHADS2-VASc score was very low. The patient was discharged on p.o. diltiazem with outpatient BMP and outpatient Cardiology follow-up. Less than 30 minutes were spent discharging this patient. All of the questions of family and patient have been answered. cc: Stalin Alonzo MD
== END 2018-10-22 17:12 | disposition home or self-care (01) | DRG 309 ==
LOC: ED 15:37 → SUATTDRO 22:45 → EDIPHOLD 22:45 → 3S 23:44
PROVIDERS: ATTEND Internal Medicine
CPT/HCPCS: 71010; 71045; 80048; 80053; 80061; 81001; 82550; 82553; 83721; 83735; 83880; 84443; 84484; 84550; 85025; 85379; 85610; 85730; 93005; 93010; 93306; 96361; 96365; 96366; 96375; 99285; A9270; C8929; J1160; J7030; Q9957